=== PATIENT | female | born 2000 | race Caucasian/White ===

== ENCOUNTER 2025-01-14 13:14 | Emergency (ER) | payer OTHER ==
[~2025-01-14] VITALS: Ht 175.3 cm; Wt 88.0 kg
[2025-01-14 13:22] VITALS: O2SAT 99
[2025-01-14 13:52] LABS: CLARITY URINE CLEAR (CLEAR); COLOR URINE YELLOW (YELLOW); GLUCOSE URINE NEGATIVE (NEGATIVE); KETONES URINE NEGATIVE (NEGATIVE); LEUKOCYTE ESTERASE URINE 1+ (NEGATIVE); NITRITE URINE NEGATIVE (NEGATIVE); OCCULT BLOOD URINE 1+ (NEGATIVE); PH URINE 6.5 (4.5-8.0); PROTEIN URINE TRACE (NEGATIVE); SPECIFIC GRAVITY URINE 1.019 (1.005-1.030); UROBILINOGEN URINE 0.2 E.U./dL (0.2-1.0)
[2025-01-14 14:09] LABS: BACTERIA URINE 1+; SQUAMOUS EPITHELIAL CELL URINE 1+ /lpf (RARE/1+); YEAST URINE NONE SEEN
[2025-01-14] MEDS ORDERED: DOXY100T2 MT (16:00)
[2025-01-14] MEDS ORDERED: VALA100044 MT (16:00)
[2025-01-14] MEDS: CEFTRIAXONE SODIUM 1G VIAL IM ONE (16:15)
[2025-01-14] MEDS: KETOROLAC 30MG/ML VIAL IM ONE (16:15)
[2025-01-14] MEDS: ACETAMINOPHEN 325MG TABLET PO ONE (16:15)
[2025-01-14] MEDS: VALACYCLOVIR HCL 500MG TABLET PO ONE (16:27)
[2025-01-14 16:32] VITALS: BP 132/80; PULSE 91; RESP 18; TEMP 36.9; O2SAT 99
[2025-01-17 04:07] LABS: CHLAMYDIA TRACHOMATIS NAA Negative (Negative); NEISSERIA GONORRHOEAE NAA Negative (Negative)
== END 2025-01-14 16:33 | disposition home or self-care (01) ==
LOC: ER 13:14
DX: B00.9 Herpesviral infection, unspecified (principal); A64 Unspecified sexually transmitted disease; Z11.3 Encounter for screening for infections with a predominantly sexual mode of transmission; Z79.624 Long term (current) use of inhibitors of nucleotide synthesis; Z79.899 Other long term (current) drug therapy
CPT/HCPCS: 87491; 87591; 81003; 81025; 96372; 99284; J0696; J1885; Z7610